=== PATIENT | male | born 1970 | race African-American/Black ===

== ENCOUNTER 2019-04-27 23:20 | Inpatient (IN) | payer OTHER ==
[~2019-04-27] VITALS: Ht 188 cm; Wt 135.2 kg
[2019-04-28] MEDS ORDERED: HYDROCODONE/APAP 5MG-325MG TAB PO ONE (00:15)
[2019-04-28] MEDS ORDERED: VANCOMYCIN 1GM/NS 250 ML 250 ML IV ONE (00:15)
[2019-04-28] MEDS ORDERED: SODIUM CHLORIDE 0.9% 1000ML 1,000 ML IV ONE (00:15)
[2019-04-28] MEDS ORDERED: TETRACAINE HCL 0.5% OPTH SOLN 4 ML BTL OS ONE (00:15)
[2019-04-28] MEDS ORDERED: SODIUM CHLORIDE 0.9% 1000ML 1,000 ML ONE (00:45)
[2019-04-28] MEDS ORDERED: SODIUM CHLORIDE 0.9% 1000ML 1,000 ML IV SCH (01:23)
[2019-04-28] MEDS ORDERED: METHYLPREDNISOLONE SOD SUCC 125 MG/2ML VIAL IV ONE (01:30)
[2019-04-28] MEDS ORDERED: DEXTROSE 50% SYRINGE 50 ML IV PRN (01:45)
[2019-04-28] MEDS ORDERED: METHYLPREDNISOLONE SOD SUCC 125 MG/2ML VIAL ONE (01:51)
[2019-04-28 03:00] VITALS: BP 135/81
[2019-04-28] MEDS: MORPHINE SULFATE INJ 4 MG/ML INJ 1ML IV PRN ×5 (03:00→21:25)
[2019-04-28] MEDS: ONDANSETRON HCL INJ 2MG/ML 2ML 2 MG/ML VIAL IV PRN ×4 (03:00→16:30)
--- NOTE | 2019-04-28 03:00 | NUR ---
PT ARRIVED ON UNIT FROM [facility] VIA AMBULANCE STRETCHER, PT VS STABLE, PT HAS LARGE AREA OF LESIONS ON LEFT SIDE OF FACE THAT ARE DRAINING AND WHEEPING, SOME LESIONS ON RIGHT SIDE OF FACE WELL. PT IS CONTACT ISOLATION, IV INFUSING, ORIENTED TO ROOM, FAMILY AT BEDSIDE, TOLD TO CALL FO RNEEDS
[2019-04-28] MEDS ORDERED: ACETAMINOPHEN 325 MG TAB PO PRN (05:45)
[2019-04-28] MEDS ORDERED: HYDRALAZINE HCL 20 MG/ML VIAL IV PRN (05:45)
[2019-04-28 05:48] LABS: BASOPHILS # (AUTO) 0.1 (0.0-0.1); BASOPHILS % 0.9 % (0.0-1.0); EOSINOPHILS % 0.4 % (0.0-6.0); HEMATOCRIT 42.7 % (38.2-49.6); HEMOGLOBIN 14.4 g/dL (14.0-18.0); LYMPHOCYTES # (AUTO) 1.5 (1.0-3.2); LYMPHOCYTES % 27.8 % (18.0-39.1); MEAN CORPUSCULAR HEMOGLOBIN 28.4 pg (28-32); MEAN CORPUSCULAR HGB CONC 33.7 g/dL (31-35); MEAN CORPUSCULAR VOLUME 84.2 fL (81-99); MONOCYTES # (AUTO) 0.2 (0.2-0.8); MONOCYTES % 3.6 % (4.4-11.3); NEUTROPHILS # (AUTO) 3.5 (2.1-6.9); NEUTROPHILS % 66.2 % (38.7-80.0); PLATELET COUNT 162 x10e3/uL (140-360); RED BLOOD COUNT 5.07 x10e6/uL (4.3-5.7); RED CELL DISTRIBUTION WIDTH 13.5 % (11.7-14.4)
[2019-04-28] MEDS ORDERED: CEFAZOLIN SOD 1 GM VIAL IV SCH (06:00)
[2019-04-28] MEDS: ACYCLOVIR SODIUM 800 MG in SODIUM CHLORIDE 0.9% 250ML 250 ML IV SCH ×3 (06:00→21:44)
[2019-04-28 06:09] LABS: ANION GAP 10.5 mmol/L (8-16); BLOOD UREA NITROGEN 14 mg/dL (7-26); BUN/CREATININE RATIO 14 (6-25); CALCIUM 8.9 mg/dL (8.4-10.2); CARBON DIOXIDE 22 mmol/L (22-29); CHLORIDE 99 mmol/L (98-107); CREATININE, SERUM 0.99 mg/dL (0.72-1.25); EST GLOMERULAR FILTRATION RATE > 60 ML/MIN (60-); GLUCOSE 318 mg/dL (74-118); POTASSIUM 5.5 mmol/L (3.5-5.1); SODIUM 126 mmol/L (136-145)
--- NOTE | 2019-04-28 06:28 | NUR ---
PT AWAKE, TOLD TO CALL FOR NEEDS, NO DISTRESS NOTED, VS STABLE, LABS DRAWN
--- NOTE | 2019-04-28 07:11 | NUR ---
pt alert resp even and unlabored at this time no distress noted pt able to make needs known ,no c/o pain when asked, call light in reach.
[2019-04-28 07:30] VITALS: BP 136/66
[2019-04-28] MEDS: METHYLPREDNISOLONE SOD SUCC 40 MG/ML VIAL 1ML IV SCH (08:29)
[2019-04-28] MEDS: INSULIN REGULAR, HUMAN 100 UNIT/1 ML 3ML VIAL SQ SCH ×4 (08:30→21:36)
[2019-04-28] MEDS ORDERED: VANCOMYCIN 250MG/5ML ORAL SOLN PO SCH (09:00)
[2019-04-28] MEDS: GABAPENTIN 400 MG CAP PO SCH ×3 (09:16→21:24)
[2019-04-28] MEDS: CEFAZOLIN SOD 1 GM/NS 50ML 50 ML IV SCH ×2 (12:34→17:30)
[2019-04-28] MEDS ORDERED: SODIUM CHLORIDE 0.9% 250ML 250 ML ONE (12:36)
[2019-04-28 13:20] LABS: HIV 1&2 AB SCREEN NON-REACTIVE (NONREACTIVE)
[2019-04-28 16:03] VITALS: BP 138/79
--- NOTE | 2019-04-28 19:40 | NUR ---
report given to oncoming nurse for continued care
[2019-04-28 20:00] VITALS: BP 134/73
--- NOTE | 2019-04-28 20:08 | Consultation ---
DATE OF CONSULTATION: 04/28/2019 REASON FOR CONSULTATION: Mr. Courtney is a 49-year-old male, denies past medical history, comes in with a rash, started with some tingling sensation on his left side forehead, kept progressively worse with vesicular lesions, redness and swelling, came to the hospital where he was admitted. He denies any visual changes, hearing changes, any other neurological symptoms. This is the first time. PAST MEDICAL HISTORY: Significant for diabetes and hypertension. ALLERGIES: NKDA. SOCIAL HISTORY: No smoking, drug abuse, or alcohol abuse. FAMILY HISTORY: Noncontributory. REVIEW OF SYSTEMS: HEENT: There is no headache, visual changes. GI: There is no nausea, no vomiting, no diarrhea. CARDIAC: There is no arrhythmia. NEURO: No seizure activity. SKIN: There is a rash as mentioned above affecting his left side of the forehead, which is vesicular with cross noted. IMPRESSION: 1. I think the patient have herpes zoster with superimposed infection. Agree with acyclovir. Agree with cefazolin. Agree with Neurontin. He is currently . Recheck CBC. Recheck Chem panel. Obtain HIV. 2. Diabetes, newly diagnosed diabetic control. 3. Further recommendations to follow depending on clinical progress. MD DMITRI Serrano/SERGIO /[id number]
[2019-04-28 21:00] VITALS: BP 134/73
[2019-04-29] VITALS (8 sets, daily range): BP systolic 113–136; BP diastolic 58–88
[2019-04-29] MEDS: MORPHINE SULFATE INJ 4 MG/ML INJ 1ML IV PRN ×3 (00:45→21:34)
[2019-04-29] MEDS: CEFAZOLIN SOD 1 GM/NS 50ML 50 ML IV SCH ×4 (01:22→17:31)
[2019-04-29] MEDS: ONDANSETRON HCL INJ 2MG/ML 2ML 2 MG/ML VIAL IV PRN ×3 (02:46→21:34)
[2019-04-29] MEDS: ACYCLOVIR SODIUM 800 MG in SODIUM CHLORIDE 0.9% 250ML 250 ML IV SCH ×3 (05:01→21:34)
[2019-04-29 05:47] LABS: BASOPHILS # (AUTO) 0.1 (0.0-0.1); EOSINOPHILS % 0.3 % (0.0-6.0); HEMATOCRIT 40.9 % (38.2-49.6); HEMOGLOBIN 13.7 g/dL (14.0-18.0); LYMPHOCYTES # (AUTO) 3.3 (1.0-3.2); LYMPHOCYTES % 36.7 % (18.0-39.1); MEAN CORPUSCULAR HEMOGLOBIN 28.1 pg (28-32); MEAN CORPUSCULAR HGB CONC 33.5 g/dL (31-35); MONOCYTES # (AUTO) 1.1 (0.2-0.8); MONOCYTES % 11.8 % (4.4-11.3); NEUTROPHILS # (AUTO) 4.5 (2.1-6.9); NEUTROPHILS % 49.8 % (38.7-80.0); PLATELET COUNT 193 x10e3/uL (140-360); RED BLOOD COUNT 4.87 x10e6/uL (4.3-5.7); RED CELL DISTRIBUTION WIDTH 13.8 % (11.7-14.4)
[2019-04-29] MEDS ORDERED: DEXTROSE 50% SYRINGE 50 ML IV PRN (06:15)
[2019-04-29 06:22] LABS: FREE T4 (FREE THYROXINE) 0.75 ng/dL (0.8-1.8); THYROID STIMULATING HORMONE 0.417 uIU/mL (0.350-4.940)
--- NOTE | 2019-04-29 07:20 | NUR ---
patient endorsed to next shift for continuity of care
[2019-04-29] MEDS: GABAPENTIN 400 MG CAP PO SCH ×3 (08:45→21:34)
[2019-04-29] MEDS: METHYLPREDNISOLONE SOD SUCC 40 MG/ML VIAL 1ML IV SCH (08:45)
[2019-04-29 09:53] LABS: ALANINE AMINOTRANSFERASE 34 IU/L (0-55); ALBUMIN 3.2 g/dL (3.5-5.0); ALBUMIN/GLOBULIN RATIO 0.6 (0.8-2.0); ALKALINE PHOSPHATASE 82 IU/L (40-150); ANION GAP 15.5 mmol/L (8-16); BLOOD UREA NITROGEN 18 mg/dL (7-26); BUN/CREATININE RATIO 19 (6-25); CALCIUM 8.9 mg/dL (8.4-10.2); CARBON DIOXIDE 22 mmol/L (22-29); CHLORIDE 97 mmol/L (98-107); CREATININE, SERUM 0.96 mg/dL (0.72-1.25); EST GLOMERULAR FILTRATION RATE > 60 ML/MIN (60-); GLUCOSE 157 mg/dL (74-118); POTASSIUM 4.5 mmol/L (3.5-5.1); SODIUM 130 mmol/L (136-145)
[2019-04-29] MEDS: INSULIN LISPRO 100 UNIT/1 ML 3ML VIAL SQ SCH ×4 (10:59→21:48)
--- NOTE | 2019-04-29 19:20 | NUR ---
Received patient from day nurse, patient stable, safety and fall precautions maintained as per hospital protocol.
[2019-04-30 00:20] VITALS: BP 134/78
[2019-04-30 04:07] LABS: BASOPHILS # (AUTO) 0.1 (0.0-0.1); BASOPHILS % 0.8 % (0.0-1.0); EOSINOPHILS # (AUTO) 0.1 (0.0-0.4); EOSINOPHILS % 0.6 % (0.0-6.0); HEMATOCRIT 38.9 % (38.2-49.6); HEMOGLOBIN 12.9 g/dL (14.0-18.0); LYMPHOCYTES # (AUTO) 4.3 (1.0-3.2); LYMPHOCYTES % 51.6 % (18.0-39.1); MEAN CORPUSCULAR HEMOGLOBIN 27.9 pg (28-32); MEAN CORPUSCULAR HGB CONC 33.2 g/dL (31-35); MEAN CORPUSCULAR VOLUME 84.2 fL (81-99); MONOCYTES # (AUTO) 0.9 (0.2-0.8); MONOCYTES % 10.2 % (4.4-11.3); NEUTROPHILS % 35.7 % (38.7-80.0); PLATELET COUNT 192 x10e3/uL (140-360); RED BLOOD COUNT 4.62 x10e6/uL (4.3-5.7); RED CELL DISTRIBUTION WIDTH 13.8 % (11.7-14.4)
[2019-04-30] MEDS: CEFAZOLIN SOD 1 GM/NS 50ML 50 ML IV SCH ×3 (05:20→12:19)
[2019-04-30] MEDS ORDERED: SODIUM CHLORIDE 0.9% 250ML 250 ML ONE (05:26)
[2019-04-30] MEDS ORDERED: METFORMIN HCL500 MG PO (06:03)
[2019-04-30] MEDS ORDERED: GABAPENTIN400 MG PO (06:03)
[2019-04-30] MEDS ORDERED: PREDNISONE20 MG PO (06:03)
[2019-04-30] MEDS: ACYCLOVIR SODIUM 800 MG in SODIUM CHLORIDE 0.9% 250ML 250 ML IV SCH ×2 (06:11→14:45)
--- NOTE | 2019-04-30 07:06 | NUR ---
patient endorsed to next shift for continuity of care.
[2019-04-30 07:17] LABS: ANION GAP 11.1 mmol/L (8-16); BLOOD UREA NITROGEN 24 mg/dL (7-26); BUN/CREATININE RATIO 24 (6-25); CALCIUM 8.8 mg/dL (8.4-10.2); CARBON DIOXIDE 23 mmol/L (22-29); CHLORIDE 100 mmol/L (98-107); CREATININE, SERUM 1.01 mg/dL (0.72-1.25); EST GLOMERULAR FILTRATION RATE > 60 ML/MIN (60-); GLUCOSE 237 mg/dL (74-118); POTASSIUM 4.1 mmol/L (3.5-5.1); SODIUM 130 mmol/L (136-145)
[2019-04-30 07:54] VITALS: BP 115/71
[2019-04-30] MEDS: INSULIN LISPRO 100 UNIT/1 ML 3ML VIAL SQ SCH ×3 (09:00→17:42)
[2019-04-30] MEDS: GABAPENTIN 400 MG CAP PO SCH ×2 (10:23→15:49)
[2019-04-30] MEDS: METHYLPREDNISOLONE SOD SUCC 40 MG/ML VIAL 1ML IV SCH (10:23)
[2019-04-30 10:32] VITALS: BP 115/71
[2019-04-30 11:39] VITALS: BP 123/74
--- NOTE | 2019-04-30 12:37 | NUR ---
CALLED JOSE REDDY AT [phone], FOR DR. LUCERO REGARDING DISCHARGE ORDER FOR ANTIBIOTICS AT THE REQUEST OF ESTEFANY DAVEY NP FOR DR. ABEBE, MESSAGE LEFT TO PLEASE CALL BACK WITH HOSPITAL NAME, UNIT AND TELEPHONE NUMBER.
[2019-04-30 12:52] LABS: LYMPHOCYTES % (MANUAL) 52 % (19-48); MONOCYTES % (MANUAL) 1 % (3.4-9.0); NEUTROPHILS % (MANUAL) 47 % (40-74); PLATELET ESTIMATE ADEQUATE; PLATELET MORPHOLOGY COMMENT NORMAL; RBC MORPHOLOGY COMMENT NORMAL
[2019-04-30 15:37] VITALS: BP 134/78
[2019-04-30] MEDS ORDERED: ACYCLOVIR800 MG PO (17:49)
[2019-04-30] MEDS ORDERED: KEFLEX500 MG PO (17:51)
--- NOTE | 2019-05-01 02:50 | Discharge Summary ---
ADMISSION DIAGNOSES: Herpes zoster conjunctivitis and obesity. DISCHARGE DIAGNOSES: Herpes zoster conjunctivitis, obesity, newly diagnosed type 2 diabetes, and conjunctivitis with superimposed infection, rule out human immunodeficiency virus. HISTORY: None. SURGICAL HISTORY: None. FAMILY HISTORY: The patient's father has diabetes. The patient's father had cancer. SOCIAL HISTORY: Noncontributory. HOSPITAL COURSE: A 49-year-old male, complains of left forehead numbness that began Saturday. By Saturday, he noticed small blisters that continued to grow bigger and spread as the week progressed. By Saturday, his left eye swelled and closed. He noticed blurry vision before the eye closed completely. He denies fever, known STDs, and previous outbreaks. On admission, the patient was started on acyclovir and cefazolin per ID. Gabapentin and Solu-Medrol were prescribed. The patient's A1c came back 6.8%, so he was started on sliding scale insulin and given metformin at the time of discharge. HIV was negative. After a couple of days of IV antibiotics and antiviral, the patient is feeling better. He will discharge home with gabapentin, metformin, prednisone tapering dose, Keflex for 5 more days, and acyclovir for 5 more days. The patient understands discharge instructions and agrees to plan. Vital signs stable, patient afebrile. Dictated by Sunita Melara NP MD SHEILA Weiss/MODL /[id number]
== END 2019-04-30 18:22 | disposition home or self-care (01) | DRG 125 ==
LOC: FSED 23:20 → ERHOLD 04-28 01:23 → IMCU 04-28 02:16 → OBSVTOIN 04-29 14:56
PROVIDERS: ADMIT Internal Medicine; ATTEND Internal Medicine
DX: B02.31 Zoster conjunctivitis (principal); L03.211 Cellulitis of face; I10 Essential (primary) hypertension; E66.9 Obesity, unspecified; Z68.38 Body mass index [BMI] 38.0-38.9, adult; E87.6 Hypokalemia; E11.65 Type 2 diabetes mellitus with hyperglycemia
CPT/HCPCS: 36415; 80048; 80053; 82948; 83036; 83690; 83880; 84439; 84443; 85025; 87040; 87390; 99284; G0378; G0433; G0435; J0690; J1817; J2270; J2405; J2920; J2930; J3370; J7030; J7050